=== PATIENT | female | born 2000 | race Caucasian/White ===

== ENCOUNTER → 2020-09-07 | Outpatient (CLI) | payer BC ==
[2020-09-07] VITALS (24 sets, daily range): BP systolic 75–120; BP diastolic 51–83
[~2020-09-07] VITALS: Ht 180 cm; Wt 64.0 kg
[~2020-09-07] MED LIST: ATROPINE INJECTION 1 MG/10 ML SYR (ABBOTT) ONE; NS IV 1000 ML 1,000 ML IV SCH; NS IV 1000 ML 1,000 ML ONE
--- NOTE | 2020-09-07 09:06 | NUR ---
IN ROOM, REVIEWED TELE STRIPS AND EKG. NEW ORDERS, TO GET ECHO BEFORE LEAVING.
--- NOTE | 2020-09-07 09:34 | NUR ---
NEW ORDERS TO ARRANGE EP APPT TODAY
--- NOTE | 2020-09-07 09:49 | NUR ---
IV DC'D AFTER ECHO, CATH INTACT ON REMOVAL. WILL DIRECTLY GO TO OFFICE FOR APPT
== END ==
LOC: CARD 08:00
PROVIDERS: ATTEND Nurse Practitioner Family
DX: R00.1 Bradycardia, unspecified (principal); R55 Syncope and collapse; R07.89 Other chest pain; R06.02 Shortness of breath
CPT/HCPCS: 93005; 93306; 93660

== ENCOUNTER → 2020-10-01 | Outpatient (CLI) | payer BC | LOC: CARD 09:00 | PROVIDERS: ATTEND Internal Medicine Interventional Cardiology | DX: R55 Syncope and collapse (principal); R06.02 Shortness of breath; R07.89 Other chest pain ==